=== PATIENT | male | born 1990 | race Caucasian/White ===

== ENCOUNTER 2019-03-17 18:47 | Emergency (ER) | payer BC, OTHER ==
--- NOTE | 2019-03-17 19:59 | ER ---
Nurse's Notes [facility] Name: Alexander Guadalupe Age: 29 yrs Sex: Male : 1990 Arrival Date: 03/17/2019 Time: 18:48 Bed 10 Private MD: Diagnosis: Person with feared health complaint in whom no diagnosis is made Presentation: 03/17 18:52 Presenting complaint: Patient states: has been having tooth pain started 5 days ago and sv has been taken Motrin 800 mg BID and yesterday he started spitting up "black stuff". Transition of care: patient was not received from another setting of care. Onset of symptoms was March 2019. Care prior to arrival: None. 18:52 Method Of Arrival: Ambulatory sv 18:52 Acuity: ROSAURA 3 sv Triage Assessment: 18:52 General: Appears in no apparent distress. comfortable, Behavior is calm, cooperative, sv appropriate for age. Neuro: Level of Consciousness is awake, alert, obeys commands. GI: Reports "spitting up black stuff". Historical: - Allergies: 18:54 No Known Drug Allergies; sv - PMHx: 18:54 None; sv - PSHx: 18:54 right great toe amputated; sv - Immunization history:: Adult Immunizations unknown. - Social history:: Smoking status: unknown. Screenin:26 Abuse screen: Denies threats or abuse. Nutritional screening: No deficits noted. bb Tuberculosis screening: No symptoms or risk factors identified. Fall Risk None identified. Assessment: 19:26 General: Appears in no apparent distress. obese. Pain: Complains of pain in mouth. bb Neuro: Level of Consciousness is awake, alert, obeys commands, Oriented to person, place, time, situation. Cardiovascular: No deficits noted. Respiratory: Respiratory effort is even, unlabored, Respiratory pattern is regular. GI: No signs and/or symptoms were reported involving the gastrointestinal system. EENT: Reports pain in mouth. Derm: Skin is dry, Skin is normal, Skin temperature is warm. Musculoskeletal: Circulation, motion, and sensation intact. 20:05 Reassessment: pt received medical screening exam and choose to leave without treatment. bb Vital Signs: 18:54 BP 169 / 104; Pulse 111; Resp 20; Temp 98.2; Pulse Ox 100% ; Weight 185.97 kg; Height 5 sv ft. 11 in. (180.34 cm); 18:54 Body Mass Index 57.18 (185.97 kg, 180.34 cm) sv ED Course: 18:48 Patient arrived in ED. as 18:53 Triage completed. sv 18:54 Arm band placed on. sv 19:26 Betty Garcia, RN is Primary Nurse. bb 19:26 Patient has correct armband on for positive identification. Call light in reach. bb 19:28 Patrice Chow PA is PHCP. cp 19:28 Patrice Edward MD is Attending Physician. cp Administered Medications: No medications were administered Outcome: 19:58 Discharge ordered by . cp 20:06 Patient left the ED. bb Signatures: Emma Gibson RN RN Carolyn Fritz as Betty Garcia, SHANE RN bb Patrice Chow PA PA cp
--- NOTE | 2019-03-17 19:59 | EDPHYS ---
Physician Documentation [facility] Name: Alexander Guadalupe Age: 29 yrs Sex: Male : 1990 Arrival Date: 03/17/2019 Time: 18:48 Bed 10 Private MD: ED Physician Patrice Edward HPI: 03/17 19:50 This 29 yrs old Male presents to ER via Ambulatory with complaints of cp Toothache, Cough. 19:50 The patient presents with pain. Onset: The symptoms/episode began/occurred 5 day(s) cp ago. Duration: The symptoms are continuous, but are steadily getting better. Associated signs and symptoms: Pertinent negatives: anorexia, dysphagia, fever, vomiting. Patient reports he is currently taking prescribed Amoxicillin, Tylenol #3 and ibuprofen for tooth pain. Tooth pain is getting better. Patient reports he came to ED after spitting up "black stuff" yesterday and today. Patient admits to being a smoker and denies blood in stool or dark/tarry stools. Historical: - Allergies: 18:54 No Known Drug Allergies; sv - PMHx: 18:54 None; sv - PSHx: 18:54 right great toe amputated; sv - Immunization history:: Adult Immunizations unknown. - Social history:: Smoking status: unknown. ROS: 19:52 Constitutional: Negative for body aches, chills, fever, poor PO intake. cp 19:52 ENT: Positive for dental pain, Negative for sore throat, difficulty swallowing, difficulty handling secretions. 19:52 Respiratory: Negative for cough, shortness of breath, wheezing. 19:52 Abdomen/GI: Negative for abdominal pain, nausea, vomiting, and diarrhea, diarrhea, constipation, black/tarry stool, rectal bleeding. 19:52 Skin: Negative for rash. 19:52 Neuro: Negative for altered mental status, dizziness, headache, weakness. 19:52 All other systems are negative. Exam: 19:55 Constitutional: The patient appears in no acute distress, alert, awake, non-toxic, well cp developed, well nourished, obese. 19:55 Head/Face: Normocephalic, atraumatic. cp 19:55 Eyes: Periorbital structures: appear normal, Conjunctiva: normal, no exudate, no injection, Lids and lashes: appear normal, bilaterally. 19:55 ENT: External ear(s): are unremarkable, Nose: is normal, Mouth: Lips: moist, Oral mucosa: pink and intact, moist, Posterior pharynx: Airway: no evidence of obstruction, patent, Tonsils: are normal in appearance, Dental exam: abscess, is not appreciated, dental caries, that is mild, diffusely, Voice: is normal. 19:55 Chest/axilla: Inspection: normal, Palpation: is normal, no crepitus, no tenderness. 19:55 Cardiovascular: Rate: tachycardic, Rhythm: regular. 19:55 Respiratory: the patient does not display signs of respiratory distress, Respirations: normal, no use of accessory muscles, no retractions, labored breathing, is not present, Breath sounds: are clear throughout, no decreased breath sounds, no stridor, no wheezing. 19:55 Abdomen/GI: Inspection: abdomen appears normal, Palpation: abdomen is soft and non-tender, in all quadrants. Vital Signs: 18:54 BP 169 / 104; Pulse 111; Resp 20; Temp 98.2; Pulse Ox 100% ; Weight 185.97 kg; Height 5 sv ft. 11 in. (180.34 cm); 18:54 Body Mass Index 57.18 (185.97 kg, 180.34 cm) sv MDM: 19:32 Patient medically screened. cp 19:55 Differential diagnosis: dental caries, dental abscess, GI bleed, gastric ulcer, cp pneumonia. 19:58 Data reviewed: vital signs, nurses notes, and as a result, I will discharge patient. cp Administered Medications: No medications were administered Disposition: 20:15 Chart complete. cp 03/18 06:18 Co-signature as Attending Physician, Patrice Edward MD I agree with the assessment and [facility] plan of care. Disposition: 03/17/19 19:58 Discharged to Home as Medical Screen. Impression: Person with feared health complaint in whom no diagnosis is made. - Condition is Stable. - Medication Reconciliation Form, Thank You Letter, Antibiotic Education, Prescription Opioid Use form. - Follow up: Emergency Department; When: As needed; Reason: Worsening of condition. - Problem is new. - Symptoms are unchanged. Signatures: Emma Gibson RN RN sv Anderson, Corey, MD MD cha Ballard, Brenda, RN RN bb Page, Patrice, PA PA cp Corrections: (The following items were deleted from the chart) 03/17 19:42 19:42 This 29 yrs old Male presents to ER via Ambulatory with complaints of cp Toothache, Cough. cp 19:52 03/16 19:00 This 29 yrs old Male presents to ER via Ambulatory with cp complaints of Toothache, Cough. cp 03/17 19:57 19:00 The patient presents with pain, cp cp 19:57 19:00 Onset: The symptoms/episode began/occurred 5 day(s) ago, cp cp 19:57 19:00 Duration: The symptoms are continuous, but are steadily getting better, cp cp 19:57 19:00 Currently taking prescribed Amoxicillin, Tylenol #3 and ibuprofen. Patient became cp concerned after "spitting up black stuff today and yesterday." Denies cough, abdominal pain, blood in stools or black tarry stools. cp 19:57 19:00 This 29 yrs old Male presents to ER via Ambulatory with complaints of cp Toothache, Cough. cp 20:06 19:58 03/17/2019 19:58 Discharged to Home as Medical Screen. Impression: Person with bb feared health complaint in whom no diagnosis is made. Condition is Stable. Forms are Medication Reconciliation Form, Thank You Letter, Antibiotic Education, Prescription Opioid Use. Follow up: Emergency Department; When: As needed; Reason: Worsening of condition. Problem is new. Symptoms are unchanged. cp
[2019-03-17 22:35] VITALS: BP 169/104; TEMP 98.2; O2SAT 100
== END 2019-03-17 20:06 | disposition home or self-care (01) ==
LOC: ER 18:47
DX: R05 Cough (principal); Z71.1 Person with feared health complaint in whom no diagnosis is made
CPT/HCPCS: 99281